=== PATIENT | female | born 1925 | race Caucasian/White ===

== ENCOUNTER 2017-01-16 14:27 | Emergency (ER) | payer MEDICARE, MEDICAID ==
[~2017-01-16] VITALS: Ht 157.5 cm; Wt 63.0 kg
[~2017-01-16 14:27] MED LIST: /ATOR40TA PO; ASPI1TAB PO; ASPI325T24 PO; ASPI81CH PO; ATOR40TA75 PO; CALCTAB75 PO; COZA50TA PO; LOSA50TA20 PO; MAPA325T2 PO; METO1TAB32 PO; NEXI40CA PO; NITR4TASL SL; OCUVTAB PO; OMEG12002 PO; POTA20TA OR; POTA75TA2 PO; POTA95TA PO; TYLE325T5 PO; VITMTA PO
[2017-01-16] MEDS ORDERED: ECOT81TA5 PO (14:42)
[2017-01-16] MEDS ORDERED: AMLO2.5T PO (14:42)
[2017-01-16 15:16] LABS: BASO % 0.3 % (0.0-1.0); EOS # 0.2 K/mm3 (0.0-0.50); EOS % 2.5 % (0.0-3.0); LARGE UNSTAINED CELL % 0.7 % (0.0-4.0); LYMPH # 1.1 K/mm3 (1.5-4.5); LYMPH % 16.3 % (24.0-44.0); MEAN CORPUSCULAR HEMOGLOBIN 32.2 pg (27.0-33.0); MEAN CORPUSCULAR HGB CONC 33.5 g/dl (32.0-36.5); MEAN CORPUSCULAR VOLUME 96.2 fl (80.0-96.0); MONO # 0.3 K/mm3 (0.0-0.8); MONO % 5.2 % (0.0-5.0); NEUTROPHILS # 4.9 K/mm3 (1.8-7.7); PLATELET COUNT, AUTOMATED 278 k/mm3 (150-450); RED CELL DISTRIBUTION WIDTH 12.4 % (11.5-14.5); WHITE BLOOD COUNT 6.5 K/mm3 (4.0-10.0)
--- NOTE | 2017-01-16 15:29 | REP ---
Clinical: Pain and swelling . Technique: Clarke scale and color Doppler evaluation using linear high frequency transducer. Findings: Ultrasound examination of the left lower extremity deep venous structures from the common femoral vein to the popliteal vein demonstrates normal compressibility flow and wave patterns in response to respiration and augmentation. There is no evidence for deep venous thrombosis. Atherosclerotic changes to the adjacent arterial vessels noted. Impression: No evidence for deep venous thrombosis. Signed by Dario Jose MD 01/16/2017 03:21 P
[2017-01-16 15:44] LABS: ALBUMIN 3.6 GM/DL (3.2-5.2); ALBUMIN/GLOBULIN RATIO 1.16 (1.00-1.93); ALKALINE PHOSPHATASE 81 U/L (45-117); ALT/SGPT 20 U/L (12-78); ANION GAP 8 MEQ/L (8-16); AST/SGOT 19 U/L (15-37); BILIRUBIN,DIRECT 0.1 MG/DL (0.0-0.2); BILIRUBIN,TOTAL 0.3 MG/DL (0.2-1.0); BLOOD UREA NITROGEN 19 MG/DL (7-18); CALCIUM LEVEL 8.8 MG/DL (8.8-10.2); CARBON DIOXIDE LEVEL 30 MEQ/L (21-32); CHLORIDE LEVEL 99 MEQ/L (98-107); CREATININE FOR GFR 0.78 MG/DL (0.55-1.02); GLOMERULAR FILTRATION RATE > 60.0 (>32); GLUCOSE, FASTING 121 MG/DL (83-110); POTASSIUM SERUM 3.5 MEQ/L (3.5-5.1); SODIUM LEVEL 137 MEQ/L (136-145); TOTAL PROTEIN 6.7 GM/DL (6.4-8.2)
[2017-01-16 16:40] VITALS: BP 157/70
[2017-01-16 17:47] LABS: FOLATE > 24.0 NG/ML (>5.4); VITAMIN B12 LEVEL 1053 PG/ML (247-911)
--- NOTE | 2017-01-17 07:35 | ECGEPIP ---
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
[2017-01-19 01:12] LABS: Lyme Disease IgG/IgM Antibodie <0.91 ISR (0.00-0.90); Lyme Disease IgM Ab Quantitati <0.80 index (0.00-0.79)
== END 2017-01-16 17:11 | disposition home or self-care (01) ==
LOC: M ED 14:27
DX: I10 Essential (primary) hypertension (principal); I25.9 Chronic ischemic heart disease, unspecified; Z86.73 Personal history of transient ischemic attack (TIA), and cerebral infarction without residual deficits; Z85.828 Personal history of other malignant neoplasm of skin; Z79.899 Other long term (current) drug therapy; Z79.82 Long term (current) use of aspirin